=== PATIENT | male | born 1935 | race Caucasian/White ===

== ENCOUNTER 2017-01-30 20:47 | Emergency (ER) | payer OTHER ==
[~2017-01-30] VITALS: Ht 182.9 cm; Wt 91.6 kg
[~2017-01-30 20:47] MED LIST: AMLO-110 PO; ASPI1TAB83 PO; CHOL100027 PO; CIPR-255 PO; CLOP1TAB15 PO; HYZ/10015 PO; METO-648 PO; NRN300 PO; POTA-335 PO; PRS5 PO; SNM/25100 PO; SPR25 PO; TAMS0.4C38 PO
[2017-01-30] MEDS ORDERED: SUCCINYLCHOLINE CHLORIDE 20 MG/ML 10 ML VIAL IV ONE (20:50)
[2017-01-30] MEDS ORDERED: MIDAZOLAM HCL 5 MG/ML 2ML VIAL IV ONE (20:50)
[2017-01-30] MEDS ORDERED: ETOMIDATE 2 MG/ML 20 ML VIAL IV ONE (20:50)
[2017-01-30] MEDS ORDERED: VECURONIUM BROMIDE 10 MG VIAL IV ONE (20:50)
--- NOTE | 2017-01-30 20:58 | EMERGENCY ROOM VISIT NOTE ---
History Report prepared by Stephenie: Christiana Brock Under the Supervision of: Dr. Daya Oropeza D.O. 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 The HPI is limited due to AMS. According to EMS the patient was in front of his house and his heard him fall in front of the garage. She states that when she found him he was bleeding from his head and in a confused state. The EMS state that the patient takes Plavix and aspirin daily. The patient states he has neck and front and back head pain. The states the patient only has a cardiac history of a heart attack in September with previous stent placement. 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 Review of Systems ROS is limited due to AMS. Past Medical & Surgical Medical Problems: (1) Benign hypertension (2) BPH (benign prostatic hypertrophy) with urinary retention (3) CAD (coronary artery disease) (4) Chronic laryngitis (5) Chronic prostatitis (6) Dyslipidemia (7) H/O hematuria (8) Hx of malignant melanoma of skin (9) Myocardial infarction (10) Sleep apnea Surgical Problems: (1) H/O colonoscopy (2) H/O prostate biopsy (3) Hx of cholecystectomy (4) S/P coronary artery stent placement (5) S/P cystoscopy (6) S/P laminectomy (7) S/P TURP Family History Cancer FATHER (colon CA) Social History Smoking Status: Former Smoker Alcohol Use: none Drug Use: none Marital Status: Housing Status: lives with family Occupation Status: retired Current/Historical Medications Scheduled Aspirin (Aspirin), 81 MG PO DAILY Cholecalciferol (Vitamin D 1000 Unit), 1,000 INTER.UNIT PO DAILY Clopidogrel (Plavix), 75 MG PO DAILY Finasteride (Finasteride), 5 MG PO DAILY Hctz/Losartan (Hyzaar 25MG/100MG), 1 TAB PO DAILY Levodopa/Carbidopa (Sinemet 25MG/100MG), 1.5 TAB PO TID Metoprolol Succ (Toprol Xl) (Toprol-Xl ), 100 MG PO DAILY Potassium Chloride (Potassium Chloride ER), 20 MEQ PO DAILY Tamsulosin Hcl (Flomax), 0.4 MG PO DAILY Allergies Coded Allergies: Gabapentin (Unverified Allergy, Unknown, unknown, 01/30/17) Atorvastatin (Verified Adverse Reaction, Intermediate, Muscle pains, ) Rosuvastatin (Verified Adverse Reaction, Intermediate, Muscle pains, ) Physical Exam Vital Signs Date Time Temp Pulse Resp B/P Pulse Ox O2 Delivery O2 Flow Rate FiO2 01/30/17 21:50 71 12 155/105 100 Mechanical Ventilator 01/30/17 21:32 81 18 122/93 99 Mechanical Ventilator 01/30/17 21:20 74 18 167/123 91 Room Air 01/30/17 21:07 74 18 167/123 91 Room Air Physical Exam HEENT: Head - Large laceration to the occiput that was bleeding profusely. Pupils 2 mm and non reactive. Extraocular eye muscles are intact and sclera are anicteric. Ears - bilaterally patent canals with no evidence of hemotympanum. Nose - moist nasal mucosa without evidence of trauma or discharge. Mouth - moist buccal mucosa with no trauma to the teeth or signs of malocclusion. Neck: The cervical collar was temporarily removed while in-line stabilization was maintained. The neck is supple and there is no pain to palpation over the posterior cervical spine and no obvious step-offs or deformities. There is no JVD or tracheal deviation. Chest: There are no signs of deformities, contusions or abrasions to the chest wall. There is no obvious crepitus or paradoxical chest rise. Heart: Regular, rate, and rhythm. There is a normal S1 and S2 with no murmurs, clicks, or gallops appreciated. Lungs: Clear to auscultation bilaterally with no wheezes, rales, or rhonchi. Abdomen: Soft, completely nontender, nondistended, with good bowel sounds. There is no sign of trauma such as contusions, abrasions or penetrations. There are no palpable pulsatile masses or hepatosplenomegaly. There is no guarding, rigidity, or rebound noted. Pelvis: Stable to rock and compression. Extremities: No obvious trauma, deformities, contusions, or edema. There are easily palpable peripheral pulses. Neuro: The patient is awake, slow to answer questions, slightly lethargic. Oriented to person and place. He is only minimally oriented to the events. Back: The entire thoracic, lumbar, and sacral spine were palpated. There are no obvious step-offs or deformities noted. There are no obvious signs of trauma such as contusions abrasions penetrations noted to the back. Medical Decision & Procedures ER Provider Diagnostic Interpretation: CT results as stated below per my review and radiologist interpretation: CT SCAN OF THE BRAIN WITHOUT IV CONTRAST CLINICAL HISTORY: Fall. Head injury. COMPARISON STUDY: MRI of the brain dated 03/19/2015. TECHNIQUE: Unenhanced axial CT scan of the brain is performed from the vertex to the skull base. CT DOSE: 1472.30 mGy.cm FINDINGS: Brain parenchyma: There is extensive subarachnoid hemorrhage. Blood fills the suprasellar cistern, as well as the sylvian fissures, the quadrigeminal plate cisterns, the prepontine cistern, and and the inferior vermian cistern. Blood is present along the cerebellopontine angle bilaterally. Subarachnoid blood is seen along the frontal cortical sulci, right greater than left, as well as the high left posterior parietal sulci.. Intraventricular blood is present within the third and fourth ventricles. A small parenchymal hematoma is suggested in the right temporal lobe. There is trace subdural blood along the right convexity seen on image #18. This measures up to 5 mm in diameter. There is also trace subdural blood along the right frontal convexity, the right tentorium cerebelli, and the posterior falx. Trace subdural blood is also seen along the posterior parietal convexity bilaterally and measures up to 7 mm in thickness. There are age-related involutional changes noting minimal microangiopathic disease. Ventricles, sulci, cisterns: Prominent secondary to involutional change. Intraventricular blood as detailed above. Intracranial vasculature: There is atherosclerotic calcification of the cavernous carotid and vertebral arteries. Calvarium: The skeletal structures are osteopenic. There is no depressed calvarial fracture. Soft tissues: There is a large right posterior parietal scalp hematoma/laceration. Sinuses and mastoids: A retention cyst is noted in the right sphenoid sinus comment small retention cysts are also seen in the maxillary antra. Air-fluid levels are present within the sphenoid sinuses. Mild mucosal thickening is seen in the frontal and ethmoid sinuses.. The mastoid air cells are well pneumatized. Orbits: The bony orbits are grossly intact. IMPRESSION: 1. Multi-compartmental intracranial hemorrhage as detail above, with extensive subarachnoid, subdural, and intraventricular blood identified. 2. A small parenchymal hematoma is suggested in the right temporal lobe. 3. There is no midline shift or evidence of acute territorial ischemia by CT criteria. 3. Large right posterior parietal scalp hematoma/laceration. No depressed calvarial fracture is identified. Emergent findings were discussed with Dr. Oropeza in the emergency department at the time of interpretation. Electronically signed by: Adama Taveras M.D. 01/30/2017 9:12 PM Dictated Date/Time: 01/30/2017 9:[address] SCAN OF THE CERVICAL SPINE CLINICAL HISTORY: Trauma. Fall. COMPARISON STUDY: MRI of the cervical spine dated 03/19/2015. TECHNIQUE: CT scan of the cervical spine is performed from the skull base to the upper thoracic spine. Images are reviewed in the axial, sagittal, and coronal planes. IV contrast was not administered for this examination. CT DOSE: Reported separately under the concurrently performed CT scan of the brain. FINDINGS: Skeletal structures: The skeletal structures are osteopenic. There is no evidence of fracture or subluxation involving the cervical spine. Vertebral body height and alignment are maintained. The odontoid process and lateral masses are intact. The atlantoaxial articulation is preserved noting productive degenerative change. The spinous processes appear intact. Anterior osteophytes are seen throughout. There is moderate to advanced multilevel cervical spondylosis. Uncovertebral and facet arthropathy contribute to neural foraminal stenosis at most levels. Intervertebral discs: Mild multilevel degenerative disc space narrowing is noted. Central canal: Posterior disc osteophyte complexes at C3-C4 and C6-C7 likely contribute to mild acquired compromise of the central canal. Soft tissues: The prevertebral and paraspinous soft tissues are within normal limits. Atherosclerotic calcification is noted in the carotid bulbs. There are low-attenuation thyroid nodules seen bilaterally measuring up to 1.6 cm. Small calcified sialoliths are present within both parotid glands. There are large calcified tonsilliths. Calvarium: The visualized calvarium at the skull base appears intact. Brain parenchyma: Subarachnoid hemorrhage is identified at the skull base. Blood is identified in the fourth ventricle and around the upper cervical cord. Sinuses and mastoids: Fluid is noted in the sphenoid sinuses. Trace fluid is seen in the right mastoid air cells. The left mastoid air cells are well pneumatized. Lung apices: Emphysema is noted at the lung apices. A calcified granuloma noted at the left apex. IMPRESSION: 1. There is no evidence of fracture or subluxation involving the cervical spine. 2. Osteopenia and spondylotic change as above. 3. Emphysema. 4. Intracranial hemorrhage is noted, and subarachnoid hemorrhage is present around the upper cervical cord. See report of CT scan of the brain performed concurrently for detailed findings. Electronically signed by: Adama Taveras M.D. 01/30/2017 9:20 PM Dictated Date/Time: 01/30/2017 9:12 PM X-ray results as stated below per interpretation by me and the radiologist: SINGLE VIEW CHEST CLINICAL HISTORY: Intracranial hemorrhage. Intubation. FINDINGS: An AP, portable, supine chest radiograph is compared to study dated 07/29/2013. Correlation is made with CT angiogram of the chest dated 07/29/2013. The examination is degraded by portable technique and patient rotation. An endotracheal tube has been placed. The tip projects 3 cm above the guero. The heart is enlarged and there is atherosclerotic calcification with ectasia and uncoiling of the thoracic aorta. This is similar appearance to prior studies. Emphysema and chronic interstitial thickening are again noted. No airspace consolidation, large pleural effusion, or pneumothorax is seen. The skeletal structures are osteopenic. The bony thorax is grossly intact. Degenerative change is seen throughout the thoracic spine. IMPRESSION: 1. An endotracheal tube has been placed. The tip projects 3.0 cm above the guero. 2. Cardiomegaly and emphysema. 3. No acute cardiopulmonary abnormality is identified. Electronically signed by: Adama Taveras M.D. 01/30/2017 9:54 PM Dictated Date/Time: 01/30/2017 9:51 PM Laboratory Results Test 01/30/17 21:20 Bedside Hemoglobin 11.9 g/dl (14.0-18.0) Bedside Hematocrit 35 % (42-52) Bedside Sodium 140 mEq/L (135-144) Bedside Potassium 3.9 mEq/L (3.3-5.0) Bedside Chloride 103 mEq/L (101-112) Bedside Total CO2 25 mEq/l (24-31) Anion Gap 17.0 mmol/L (16-25) Bedside Blood Urea Nitrogen 49 mg/dl (7-18) Bedside Creatinine 2.0 mg/dl (0.6-1.3) Bedside Glucose (other) 196 mg/dl (70-99) Bedside Ionized Calcium (Mario) 1.30 mmol/l (1.12-1.32) Laboratory results per my review. Medications Administered Medications (Trade) Dose Ordered Sig/Lorraine Route Start Time Stop Time Status Last Admin Dose Admin Ondansetron HCl (Zofran Inj) 4 mg STK-MED ONCE .ROUTE 01/30/17 21:00 01/30/17 21:01 DC 01/30/17 21:00 4 MG Miscellaneous (Rapid Sequence Induction Bag) 1 ea STK-MED ONCE N/A 01/30/17 21:11 01/30/17 21:12 DC 01/30/17 21:11 1 EA Procedure Medications Administered: Ondansetron HCl Succinylcholine Etomidate Vecuronium Milena Indication: Head Trauma- airway protection The patient was on 4L 02 via NC prior to the procedure. Suction, airway equipment, RSI drugs, respiratory equipment, and appropriate personnel were prepared prior to the initiation of the procedure. A time out was taken. Induction was performed with 30 mg-Etomidate and 150 mg-Succinylcholine. preprocedure O2 saturation was 98%. After observing the clinical benefit of the medications, the airway was easily visualized utilizing a GlideScope. A 7.5 size ETT tube was placed atraumatically to 24 cm using standard technique. The cuff inflated without signs of malfunction. There were bilateral breath sounds, positive colormetric change, no gastric sounds, a good capnography waveform, and post procedure pulse oximetry was 100 %. Post intubation sedation and paralysis was administered using versed and vecuronium. There were no complications. Chest X-Ray was performed after the Intubation and ET tube was 2 cm above the guero and lung geller were normal. ECG Indication: altered mental status Rate (beats per minute): 65 Rhythm: normal sinus Findings: no acute ischemic change, no ectopy Comparison ECG Date: July 11, 2016 Change: no significant change ED Course 2047: Past medical records reviewed. The patient was evaluated in room B1. A complete history and trauma physical exam was performed. A pressure dressing was applied to the scalp. 2054: The patient began to vomit as he was being transported for his CT scan. 2099: Ordered Zofran Inj 4 mg IV. 2108: I discussed the case with Dr. Zacarias [facility]. He agreed to accept the patient for transfer and he will be transferred by [facility]. 2110: Ordered Rapid Sequence Induction Bag. 2114: I intubated the patient prior to his transport. He remained hemodynamically stable. I kept the patient's family abreast of the situation. 2119: The patient was taken by the Flight crew to be transported to [facility] for further care and evaluation. I updated the accepting physician in [place]. Medical Decision The patient is a 81 year old male who presents to the ED with AMS. Differential diagnosis includes skull fracture, intracranial trauma, syncope, hypoglycemia, and mechanical fall. Labs: Hemoglobin 11.9 Hematocrit 35 BUN 49 Creatinine 2 Glucose 196. This is a 81-year-old male patient who fell or collapsed in his driveway. The fall was unwitnessed. I am unsure whether or not this was a syncopal event, collapse, or mechanical fall. The patient has no outward signs of trauma on his body except for the large laceration to the occiput. However, the patient has a significant amount of subarachnoid blood which could indicate a ruptured aneurysm as opposed to subarachnoid blood from trauma. Because the patient has such extensive intracranial blood on CT scan, I was worried about his mental status and the protection of his airway during air medical transport. I did an elective RSI with intubation. The patient was then transferred as a level I trauma to [facility] Time Called: [phone] Consulting Physician: Dr. Zacarias [facility] Returned Call: [phone] I discussed the case with Dr. Zacarias [facility]. He agreed to accept the patient for transfer and he will be transferred by [facility]. Impression Primary Impression: Intracranial hemorrhage Critical Care I have personally spent greater than 60 minutes of critical care time in the direct management of this patient. This includes bedside care, interpretation of diagnostic studies, and testing, discussion with consultants, patient, and family members, and other required patient management activities. This 60 minutes is in excess of all separately billable procedures. Scribe Attestation The scribe's documentation has been prepared under my direction and personally reviewed by me in its entirety. I confirm that the note above accurately reflects all work, treatment, procedures, and medical decision making performed by me. Departure Information Dispostion Transfer Acute Care Facility ([facility]) Referrals Navjot Anaya M.D. (PCP) Patient Instructions [facility]
[2017-01-30] MEDS ORDERED: ONDANSETRON INJ 2 MG/ML 2 ML VIAL ONE ×2 (21:00→21:04)
[2017-01-30] MEDS ORDERED: PRED10TA PO (21:10)
[2017-01-30] MEDS ORDERED: RAPID SEQUENCE INDUCTION BAG ONE (21:11)
--- NOTE | 2017-01-30 21:14 | DIAGNOSTIC IMAGING REPORT ---
CT SCAN OF THE BRAIN WITHOUT IV CONTRAST CLINICAL HISTORY: Fall. Head injury. COMPARISON STUDY: MRI of the brain dated 03/19/2015. TECHNIQUE: Unenhanced axial CT scan of the brain is performed from the vertex to the skull base. CT DOSE: 1472.30 mGy.cm FINDINGS: Brain parenchyma: There is extensive subarachnoid hemorrhage. Blood fills the suprasellar cistern, as well as the sylvian fissures, the quadrigeminal plate cisterns, the prepontine cistern, and and the inferior vermian cistern. Blood is present along the cerebellopontine angle bilaterally. Subarachnoid blood is seen along the frontal cortical sulci, right greater than left, as well as the high left posterior parietal sulci.. Intraventricular blood is present within the third and fourth ventricles. A small parenchymal hematoma is suggested in the right temporal lobe. There is trace subdural blood along the right convexity seen on image #18. This measures up to 5 mm in diameter. There is also trace subdural blood along the right frontal convexity, the right tentorium cerebelli, and the posterior falx. Trace subdural blood is also seen along the posterior parietal convexity bilaterally and measures up to 7 mm in thickness. There are age-related involutional changes noting minimal microangiopathic disease. Ventricles, sulci, cisterns: Prominent secondary to involutional change. Intraventricular blood as detailed above. Intracranial vasculature: There is atherosclerotic calcification of the cavernous carotid and vertebral arteries. Calvarium: The skeletal structures are osteopenic. There is no depressed calvarial fracture. Soft tissues: There is a large right posterior parietal scalp hematoma/laceration. Sinuses and mastoids: A retention cyst is noted in the right sphenoid sinus comment small retention cysts are also seen in the maxillary antra. Air-fluid levels are present within the sphenoid sinuses. Mild mucosal thickening is seen in the frontal and ethmoid sinuses.. The mastoid air cells are well pneumatized. Orbits: The bony orbits are grossly intact. IMPRESSION: 1. Multi-compartmental intracranial hemorrhage as detail above, with extensive subarachnoid, subdural, and intraventricular blood identified. 2. A small parenchymal hematoma is suggested in the right temporal lobe. 3. There is no midline shift or evidence of acute territorial ischemia by CT criteria. 3. Large right posterior parietal scalp hematoma/laceration. No depressed calvarial fracture is identified. Emergent findings were discussed with Dr. Oropeza in the emergency department at the time of interpretation. Electronically signed by: Adama Taveras M.D. 01/30/2017 9:12 PM Dictated Date/Time: 01/30/2017 9:02 PM
--- NOTE | 2017-01-30 21:22 | DIAGNOSTIC IMAGING REPORT ---
CT SCAN OF THE CERVICAL SPINE CLINICAL HISTORY: Trauma. Fall. COMPARISON STUDY: MRI of the cervical spine dated 03/19/2015. TECHNIQUE: CT scan of the cervical spine is performed from the skull base to the upper thoracic spine. Images are reviewed in the axial, sagittal, and coronal planes. IV contrast was not administered for this examination. CT DOSE: Reported separately under the concurrently performed CT scan of the brain. FINDINGS: Skeletal structures: The skeletal structures are osteopenic. There is no evidence of fracture or subluxation involving the cervical spine. Vertebral body height and alignment are maintained. The odontoid process and lateral masses are intact. The atlantoaxial articulation is preserved noting productive degenerative change. The spinous processes appear intact. Anterior osteophytes are seen throughout. There is moderate to advanced multilevel cervical spondylosis. Uncovertebral and facet arthropathy contribute to neural foraminal stenosis at most levels. Intervertebral discs: Mild multilevel degenerative disc space narrowing is noted. Central canal: Posterior disc osteophyte complexes at C3-C4 and C6-C7 likely contribute to mild acquired compromise of the central canal. Soft tissues: The prevertebral and paraspinous soft tissues are within normal limits. Atherosclerotic calcification is noted in the carotid bulbs. There are low-attenuation thyroid nodules seen bilaterally measuring up to 1.6 cm. Small calcified sialoliths are present within both parotid glands. There are large calcified tonsilliths. Calvarium: The visualized calvarium at the skull base appears intact. Brain parenchyma: Subarachnoid hemorrhage is identified at the skull base. Blood is identified in the fourth ventricle and around the upper cervical cord. Sinuses and mastoids: Fluid is noted in the sphenoid sinuses. Trace fluid is seen in the right mastoid air cells. The left mastoid air cells are well pneumatized. Lung apices: Emphysema is noted at the lung apices. A calcified granuloma noted at the left apex. IMPRESSION: 1. There is no evidence of fracture or subluxation involving the cervical spine. 2. Osteopenia and spondylotic change as above. 3. Emphysema. 4. Intracranial hemorrhage is noted, and subarachnoid hemorrhage is present around the upper cervical cord. See report of CT scan of the brain performed concurrently for detailed findings. Electronically signed by: Adama Taveras M.D. 01/30/2017 9:20 PM Dictated Date/Time: 01/30/2017 9:12 PM
[2017-01-30] MEDS ORDERED: METO100T44 PO (21:26)
[2017-01-30] MEDS ORDERED: POTA-65 PO (21:26)
[2017-01-30 21:34] LABS: ISTAT HEMOGLOBIN 11.9 g/dl (14.0-18.0); ISTAT IONIZED CALCIUM 1.3 mmol/l (1.12-1.32)
[2017-01-30 21:50] VITALS: BP 155/105; PULSE 71; O2SAT 100
--- NOTE | 2017-01-30 21:56 | DIAGNOSTIC IMAGING REPORT ---
SINGLE VIEW CHEST CLINICAL HISTORY: Intracranial hemorrhage. Intubation. FINDINGS: An AP, portable, supine chest radiograph is compared to study dated 07/29/2013. Correlation is made with CT angiogram of the chest dated 07/29/2013. The examination is degraded by portable technique and patient rotation. An endotracheal tube has been placed. The tip projects 3 cm above the guero. The heart is enlarged and there is atherosclerotic calcification with ectasia and uncoiling of the thoracic aorta. This is similar appearance to prior studies. Emphysema and chronic interstitial thickening are again noted. No airspace consolidation, large pleural effusion, or pneumothorax is seen. The skeletal structures are osteopenic. The bony thorax is grossly intact. Degenerative change is seen throughout the thoracic spine. IMPRESSION: 1. An endotracheal tube has been placed. The tip projects 3.0 cm above the guero. 2. Cardiomegaly and emphysema. 3. No acute cardiopulmonary abnormality is identified. Electronically signed by: Adama Taveras M.D. 01/30/2017 9:54 PM Dictated Date/Time: 01/30/2017 9:51 PM
[2017-01-30 22:05] VITALS: Ht 182.9 cm; Wt 91.6 kg
== END 2017-01-30 21:52 | disposition short-term general hospital (02) ==
LOC: EDBD 20:47 → C.EDB 20:49
DX: I62.9 Nontraumatic intracranial hemorrhage, unspecified (principal); W19.XXXA Unspecified fall, initial encounter; Z79.01 Long term (current) use of anticoagulants; Z79.82 Long term (current) use of aspirin; I25.2 Old myocardial infarction; Z95.5 Presence of coronary angioplasty implant and graft; I10 Essential (primary) hypertension; N40.0 Benign prostatic hyperplasia without lower urinary tract symptoms; E78.5 Hyperlipidemia, unspecified; Z85.820 Personal history of malignant melanoma of skin; G47.30 Sleep apnea, unspecified; Z90.49 Acquired absence of other specified parts of digestive tract; Z80.0 Family history of malignant neoplasm of digestive organs; Z87.891 Personal history of nicotine dependence